=== PATIENT | male | born 1975 ===

== ENCOUNTER 2024-09-20 20:24 | Emergency (ER) | payer OTHER ==
[~2024-09-20] VITALS: Ht 185.4 cm; Wt 148.8 kg
[2024-09-20 21:02] LABS: BASOPHILS ABSOLUTE AUTO 0.07 K/mm3 (0.00-0.23); BASOPHILS PERCENT AUTO 1 % (0-2); EOSINOPHILS ABSOLUTE AUTO 0.17 K/mm3 (0.00-0.68); EOSINOPHILS PERCENT AUTO 1 % (0-6); Hematocrit 43.5 % (37.0-53.0); Hemoglobin 15.5 g/dL (13.5-17.5); IMMATURE GRAN ABSOLUTE AUTO 0.05 K/mm3 (0.00-0.10); IMMATURE GRAN PERCENT AUTO 0 % (0-1); LYMPHOCYTES ABSOLUTE AUTO 2.39 K/mm3 (0.84-5.20); LYMPHOCYTES PERCENT AUTO 18 % (21-46); MONOCYTES ABSOLUTE AUTO 0.99 K/mm3 (0.16-1.47); MONOCYTES PERCENT AUTO 8 % (4-13); Mean Corpuscular HGB Conc 35.6 g/dL (31.5-36.5); Mean Corpuscular Volume 91 fL (80-100); NEUTROPHILS ABSOLUTE AUTO 9.53 K/mm3 (1.96-9.15); NEUTROPHILS PERCENT AUTO 72 % (41-73); NRBC ABSOLUTE 0.00 K/mm3 (0.00-0.02); NRBC Auto 0.0 /100 WBC (0.0-0.2); Platelet Count 264 K/mm3 (150-400); RDW Coefficient Variation 13.3 % (11.7-14.2); RDW Standard Deviation 44.4 fL (35.1-46.3)
[2024-09-20 21:21] LABS: Alanine Aminotransfer (ALT/SGP 69.0 U/L (12-78); Albumin, Blood 3.8 g/dL (3.4-5.0); Albumin/Globulin Ratio 0.9 (0.8-1.8); Anion Gap 7.0 mmol/L (3-11); Aspartate Aminotrans (AST/SGOT 35.0 U/L (12-37); Bilirubin, Total 0.9 mg/dL (0.1-1.0); Blood Urea Nitrogen 14.0 mg/dL (8-24); CO2, Blood 26.0 mmol/L (21-32); Calcium, Blood 8.9 mg/dL (8.5-10.1); Chloride, Blood 107.0 mmol/L (98-108); Creatinine, Blood 0.89 mg/dL (0.60-1.20); Globulin, Blood 4.1 g/dL (2.2-4.0); Glucose, Blood 155.0 mg/dL (70-99); Potassium, Blood 3.7 mmol/L (3.5-5.5); Sodium, Blood 136.0 mmol/L (136-145); Total Protein, Blood 7.9 g/dL (6.4-8.2)
[2024-09-20] MEDS ORDERED: Morphine Sulfate 4 MG/1 ML Injection IV ONE (22:30)
[2024-09-20] MEDS ORDERED: ACET500 PO (22:53)
[2024-09-20] MEDS ORDERED: LIDO700A20 TOP (22:53)
[2024-09-20] MEDS ORDERED: IBUP600 PO (22:53)
[2024-09-20] MEDS ORDERED: AMITRIPTYLINE H25 MG PO (23:17)
[2024-09-20] MEDS ORDERED: Toprol Xl200 MG (23:17)
[2024-09-20] MEDS ORDERED: LISI20 PO (23:17)
== END 2024-09-20 23:27 | disposition home or self-care (01) ==
LOC: ER 20:24
PROVIDERS: Student in an Organized Health Care Education/Training Program
DX: M25.561 Pain in right knee (principal); M25.571 Pain in right ankle and joints of right foot; R07.89 Other chest pain; V86.55XA Driver of 3- or 4- wheeled all-terrain vehicle (ATV) injured in nontraffic accident, initial encounter
CPT/HCPCS: 70450; 71260; 72125; 73562-RT; 73600; 74177; 80053; 84484; 85025; 93005; 93010; 96374; 99284-25; J2270; L0160; Q9967